=== PATIENT | male | born 1950 | race Caucasian/White ===

== ENCOUNTER 2018-06-23 05:48 | Day surgery (SDC) | payer OTHER ==
[~2018-06-23 05:48] MED LIST: Buffered Lidocaine 1% SYRIN* 1 ML/SYRINGE INTRADERM ONE
[2018-06-23] MEDS ORDERED: Famotidine IV* 10 MG/ML 2 ML (20 mg) IV ONE (06:00)
[2018-06-23] MEDS ORDERED: Lactated Ringers 1000 ML Bag* 1,000 ML IV SCH (06:00)
[2018-06-23] MEDS ORDERED: Famotidine IV* 10 MG/ML 2 ML (20 mg) ONE (06:10)
[2018-06-23] MEDS ORDERED: ceFAZolin 2 GM in NS PREMIX(*) 2 GM/100 ML BAG IVPB ONE (06:10)
[2018-06-23] MEDS ORDERED: Bupivacaine 0.5% W/EPI SDV* 30 ML VIAL ONE (06:56)
[2018-06-23] MEDS ORDERED: Lidocaine 1% INJ* 10 MG/ML 30 ML SDV ONE (06:57)
[2018-06-23] MEDS ORDERED: Ketorolac INJ* 30 MG/ML 1 ML VIAL ONE (07:11)
[2018-06-23] MEDS ORDERED: Midazolam* 1 MG/ML 10 ML VIAL (10 MG) ONE (07:11)
[2018-06-23] MEDS ORDERED: Propofol* 10 MG/ML 20 ML BTL ONE (07:11)
[2018-06-23] MEDS ORDERED: fentaNYL* 50 MCG/ML 2 ML VIAL (100 MCG VIAL) ONE (07:11)
[2018-06-23] MEDS ORDERED: Ondansetron INJ* 2 MG/ML VIAL ONE (07:11)
[2018-06-23] MEDS ORDERED: Dexamethasone IV* 4 MG/ML 1 ML (4 MG) ONE (07:11)
[2018-06-23] MEDS ORDERED: Lidocaine 2% PF * 5 ML VIAL ONE (07:11)
--- NOTE | 2018-06-23 08:24 | OP ---
Operative Report - Blank - Operative Report Date of Operation: 06/23/18 Note: Brief Operative Note Preop Dx: Left Inguinal Hernia Postop Dx: same, indirect Procedure: open repair LIH w/ mesh Anesthesia: Local MAC Surgeon: Mak Asic Design Engineer: BRYNN Schaeffer Fluids: 800 ml RL EBL: < 10 ml Specimen: none Drains: none Findings: dictated
--- NOTE | 2018-06-23 10:40 | OP ---
CC: Aniket Corado MD; Dr. Hutchison OPERATIVE REPORT: DATE OF OPERATION: 06/23/18 DATE OF : 52 SURGEON: Aniket Corado MD VACUUM FURNACE OPERATOR: BRYNN Fajrado ANESTHESIOLOGIST: Dr. Skelton ANESTHESIA: LMAC anesthesia. PRE-OP DIAGNOSIS: Left inguinal hernia. POST-OP DIAGNOSIS: Left inguinal hernia. OPERATIVE PROCEDURE: Open left inguinal hernia repair with mesh. DESCRIPTION OF PROCEDURE: The patient is supine on the operating room table after adequate intraveno us sedation, compression stockings, Rach Hugger warmer and intravenous antibiotics. The left groin w as clipped and prepped with antiseptic and draped in a sterile fashion. Local infiltrative anesthesi a was administered. Small left inguinal incision was created approximately 2 to 2.5 inches in size. D issection was carried down to the external oblique, which was opened in the direction of its fibers. Cord structures were encircled with a Lore drain tented upward. The indirect sac was dissected f ree and reduced, it was a little fibrotic, but not really much trouble. There was no direct space sa c. A cone mesh plug was placed into the internal ring, sutured there with 2-0 Vicryl. A second piec e of mesh was placed over the inguinal floor, sutured to the tubercle. Tails were split, brought glendy und the cord structures, tacked down laterally with 2-0 Vicryl. External oblique was closed over top with 2-0 Vicryl, Vanessa's with 3-0 Vicryl, skin with 4-0 Prolene followed by sterile dressing. He t olerated the procedure well and was awakened and brought to Recovery in good condition. There were n o complications. No drains. No pathologic specimens. Sponge and instrument counts correct. Estima pari blood loss as 20 mL. [id number]/[facility] #: [id number]
[2018-06-23 15:08] VITALS: BP 124/72
== END 2018-06-23 15:10 | disposition home or self-care (01) ==
LOC: OR 05:48
PROVIDERS: ATTEND Surgery
DX: K40.90 Unilateral inguinal hernia, without obstruction or gangrene, not specified as recurrent (principal); C61 Malignant neoplasm of prostate; I10 Essential (primary) hypertension
CPT/HCPCS: C1781; J0690; J1100; J1885; J2250; J2405; J2704; J3010